=== PATIENT | female | born 1995 | race Caucasian/White ===

== ENCOUNTER 2020-04-21 00:57 | Outpatient (CLI) | payer OTHER | END 2020-04-21 00:58 | disposition critical access hospital (66) | LOC: EMS 00:57 | PROVIDERS: ATTEND Surgery | DX: R06.00 Dyspnea, unspecified (principal) | CPT/HCPCS: A0425; A0427 ==

== ENCOUNTER 2020-04-21 01:15 | Emergency (ER) | payer OTHER ==
[2020-04-21] MEDS ORDERED: CETIRIZINE 10 MG TABLET PO STA (01:28)
[2020-04-21] MEDS ORDERED: SODIUM CHLORIDE 0.9% 1,000 ML IV STA (01:28)
[2020-04-21] MEDS ORDERED: ALBUTEROL NEB 2.5 MG/3 ML INH STA (01:28)
--- NOTE | 2020-04-21 01:29 | ED Physician Documentation ---
PD HPI DYSPNEA - Stated complaint Stated Complaint: SOA - Chief complaint Chief Complaint: Resp - History obtained from History obtained from: Patient, EMS - History of Present Illness Timing - onset: How many hours ago (the past 1-2 hours, has had itching, dyspnea and wheezing.) Timing - onset during: Light activity (She had been out in the sun and with a friend of hers who was a dog. She is allergic to dogs but had done okay around this pet before. Unknown if other environmental exposures. She developed wheezing itching and lightheadedness) Timing - duration: Hours (onset mildly over 1-2 hours, then dyspnea got abruptly worse.) Timing - details: Gradual onset Inciting event(s): Allergic rxn/anaphylaxis. No: URI Improved by: Benadryl, Other (saline mist enroute by EMS.) Associated symptoms: Wheezing. No: Fever, Cough, Chest pain / discomfort, Palpitations, Bilateral edema Similar symptoms before: Has not had sx before Recently seen: Not recently seen Review of Systems Constitutional: denies: Fever, Chills Nose: denies: Rhinorrhea / runny nose, Congestion Throat: denies: Sore throat Cardiac: denies: Chest pain / pressure, Palpitations Respiratory: reports: Dyspnea, Wheezing. denies: Cough GI: denies: Abdominal Pain, Nausea, Vomiting, Diarrhea : denies: Missed period Skin: reports: Rash (mild sunburn from being outdoors today, chest/face/arms), Abrasion (s) (left lower leg few days ago, without infection). denies: Lesions Neurologic: reports: Generalized weakness. denies: Focal weakness, Numbness, Near syncope PD PAST MEDICAL HISTORY - Past Medical History Past Medical History: No Respiratory: None - Past Surgical History Past Surgical History: No - Present Medications Home Medications: Ambulatory Orders Medication Instructions Recorded Confirmed Albuterol Sulfate [Albuterol 2 puffs IH QID #1 hfa.aer.ad 04/21/20 Sulfate Hfa] Cetirizine [ZyrTEC] 10 mg PO DAILY #15 tablet 04/21/20 dexAMETHasone [Decadron] 4 mg PO DAILY #5 tablet 04/21/20 - Allergies Allergies/Adverse Reactions: Allergies Allergy/AdvReac Type Severity Reaction Status Date / Time No Known Drug Allergies Allergy Verified 04/21/20 01:25 - Social History Does the pt smoke?: No Smoking Status: Never smoker Does the pt drink ETOH?: Yes Does the pt have substance abuse?: No - Immunizations Immunizations are current?: Yes - POLST Patient has POLST: No PD ED PE NORMAL - Vitals Vital signs reviewed: Yes - General General: Alert and oriented X 3, No acute distress, Well developed/nourished - HEENT HEENT: Pharynx benign - Neck Neck: Supple, no meningeal sign, No adenopathy - Cardiac Cardiac: RRR (tachycardic but regular), No murmur - Respiratory Respiratory: No: Clear bilaterally (scattered expiratory wheezing. ) - Abdomen Abdomen: Soft, Non tender - Derm Derm: Normal color, Warm and dry Results - Vitals Vitals: Vital Signs - 24 hr 04/21/20 04/21/20 04/21/20 01:20 01:44 02:00 Temperature 36.6 C Heart Rate 127 H 101 H 130 H Respiratory 18 20 24 Rate Blood Pressure 129/90 H 111/76 O2 Saturation 100 100 Oxygen O2 Source Room air PD MEDICAL DECISION MAKING - ED course Complexity details: re-evaluated patient (improved more with albuterol neb. ), considered differential (seems allergic reaction. No angioedema. ), d/w patient Departure - Departure Disposition: 01 Home, Self Care Clinical Impression: Acute allergic reaction Qualifiers: Encounter type: initial encounter Qualified Code(s): T78.40XA - Allergy, unspecified, initial encounter Condition: Stable Record reviewed to determine appropriate education?: Yes Instructions: ED Allergic Reaction General Other Follow-Up: [facility] [Provider Group] Prescriptions: Albuterol Sulfate [Albuterol Sulfate Hfa] 2 puffs IH QID #1 hfa.aer.ad dexAMETHasone [Decadron] 4 mg PO DAILY #5 tablet Cetirizine [ZyrTEC] 10 mg PO DAILY #15 tablet Comments: I would suggest continuing cetirizine long-acting antihistamine daily for several days to a week. Also Decadron steroid daily for least 2-3 more days. Add Benadryl every 6 hours if needed for itchiness or rash. Use the albuterol inhaler 2 puffs 4 times a day as needed for wheezing or shortness of breath. It is hard to tell the cause of the allergic reaction. It may be the dog you had been around, or there could been some other environmental factor. You could try being around the dog a little bit and see if it causes some symptoms. Cetirizine daily as needed for any allergy symptoms. Have the inhaler on hand in case you get wheeziness or short of breath while out and about. Follow-up with your primary care if consistent symptoms more than several days to week or two. Discharge Date/Time: 04/21/20 02:32
[2020-04-21 02:13] VITALS: BP 111/76
[2020-04-21] MEDS ORDERED: CHERRY SYRUP 10 ML UDC PO ONE (02:24)
[2020-04-21] MEDS ORDERED: DEXAMETHASONE 10 MG/ML VIAL PO STA (02:24)
== END 2020-04-21 02:32 | disposition home or self-care (01) ==
LOC: ED 01:15
DX: T78.40XA Allergy, unspecified, initial encounter (principal); X58.XXXA Exposure to other specified factors, initial encounter; R06.2 Wheezing; R00.0 Tachycardia, unspecified; Z91.048 Other nonmedicinal substance allergy status
CPT/HCPCS: 94640; 96360; 99283; 99284; A9270

== ENCOUNTER 2020-10-29 08:48 | Emergency (ER) | payer OTHER ==
[2020-10-29 08:59] VITALS: BP 114/88
[2020-10-29 09:16] LABS: BILIRUBIN,URINE NEGATIVE (NEGATIVE); GLUCOSE, URINE (UA) NEGATIVE (NEGATIVE); KETONES,URINE (UA) NEGATIVE (NEGATIVE); LEUKOCYTE ESTERASE, URINE NEGATIVE (NEGATIVE); NITRITE,URINE NEGATIVE (NEGATIVE); OCCULT BLOOD,URINE NEGATIVE (NEGATIVE); PROTEIN,URINE NEGATIVE (NEGATIVE); UROBILINOGEN,URINE 0.2 (NORMAL) E.U./dL (NORMAL)
[2020-10-29 09:18] LABS: CLARITY,URINE CLEAR (CLEAR)
--- NOTE | 2020-10-29 10:48 | ED Physician Documentation ---
PD HPI FEMALE - Stated complaint Stated Complaint: FEMALE /7WK OB - Chief complaint Chief Complaint: Abd Pain - History obtained from History obtained from: Patient - Additional information Additional information: Patient comes emergency department chief complaint of low abdominal cramping that started yesterday. She is about 7 weeks with her last menstrual period being September 06 for starting date, and states that she has had no problems during the so far. She is for the first time. The patient began to notice nausea yesterday and today, had some mild pink dis coloration of the tissue paper when she wiped herself after urinating. Patient denies any dysuria. She has not had any further bleeding and is not bleeding onto her underwear. No fevers or chills. No recent trauma. No other complaints at this time. The patient states she has not had an ultrasound yet, but called her OBs office, who told her to come here and get checked out. Review of Systems Ten Systems: 10 systems reviewed and negative Constitutional: reports: Reviewed and negative Eyes: reports: Reviewed and negative Ears: reports: Reviewed and negative Nose: reports: Reviewed and negative Throat: reports: Reviewed and negative Cardiac: reports: Reviewed and negative Respiratory: reports: Reviewed and negative GI: reports: Abdominal Pain, Nausea : reports: Vaginal bleeding Skin: reports: Reviewed and negative Musculoskeletal: reports: Reviewed and negative Neurologic: reports: Reviewed and negative Psychiatric: reports: Reviewed and negative Endocrine: reports: Reviewed and negative Immunocompromised: reports: Reviewed and negative PD PAST MEDICAL HISTORY - Past Medical History Past Medical History: Yes Cardiovascular: None Respiratory: None Neuro: None Endocrine/Autoimmune: None GI: GERD 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 HEENT: None Psych: None Musculoskeletal: None Derm: None - Past Surgical History Past Surgical History: No - Present Medications Home Medications: Ambulatory Orders Medication Instructions Recorded Confirmed Ondansetron Odt [Zofran] 4 mg TL Q6H PRN #10 tablet 10/29/20 No122/Iron/Folic Acid 1 tab PO DAILY 10/29/20 10/29/20 [ Multi Tablet] - Allergies Allergies/Adverse Reactions: Allergies Allergy/AdvReac Type Severity Reaction Status Date / Time No Known Drug Allergies Allergy Verified 10/29/20 08:56 - Social History Does the pt smoke?: No Smoking Status: Never smoker Does the pt drink ETOH?: Yes Does the pt have substance abuse?: No - Immunizations Immunizations are current?: Yes - POLST Patient has POLST: No PD ED PE NORMAL - Vitals Vital signs reviewed: Yes - General General: Alert and oriented X 3, No acute distress, Well developed/nourished - HEENT HEENT: Atraumatic, PERRL, EOMI, Moist mucous membranes - Neck Neck: Supple, no meningeal sign - Cardiac Cardiac: RRR, No murmur, Strong equal pulses - Respiratory Respiratory: No respiratory distress, Clear bilaterally - Abdomen Abdomen: Soft, Non distended, Other (Slight suprapubic tenderness. 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 Normal external genitalia and cervical morphology. No vaginal trauma. No bright red blood or tissue. Mild amount of brown-tinged mucousy discharge. No cervical motion tenderness or adnexal tenderness. No cervical mass.) - Back Back: No CVA TTP - Derm Derm: Normal color, Warm and dry, No rash - Extremities Extremities: No deformity, No edema, No calf tenderness / cord - Neuro Neuro: Alert and oriented X 3, Other (Grossly intact.) - Psych Psych: Normal mood, Normal affect Results - Vitals Vitals: Vital Signs - 24 hr 10/29/20 08:57 Temperature 36.8 C Heart Rate 95 Respiratory 19 Rate Blood Pressure 114/88 H O2 Saturation 100 Oxygen O2 Source Room air - Labs Labs: Laboratory Tests 10/29/20 10/29/20 09:06 09:08 HCG, Quant 14323.00 Urine Color YELLOW Urine Clarity CLEAR Urine pH 7.0 Ur Specific [place] 1.020 Urine Protein NEGATIVE Urine Glucose (UA) NEGATIVE Urine Ketones NEGATIVE Urine Occult Blood NEGATIVE Urine Nitrite NEGATIVE Urine Bilirubin NEGATIVE Urine Urobilinogen 0.2 (NORMAL) Ur Leukocyte Esterase NEGATIVE Ur Microscopic Review NOT INDICATED Urine Culture Comments NOT INDICATED - Rads (name of study) US OB Radiology: Final report received, EMP read indepedently, See rad report (Viable IUP) PD MEDICAL DECISION MAKING - ED course Complexity details: reviewed results, re-evaluated patient, considered differential, d/w patient ED course: The patient was worked up in the emergency department with urinalysis, which was negative, and serum hCG, which was found to be above 40,000. OB ultrasound was also performed, and showed a viable IUP. I discussed with the patient that her work-up looks good. We have discussed that it is still possible that she could be exhibiting early signs of an impending miscarriage, but that it is also very possible that her will progress without incident. I have encouraged her to make an appointment to follow-up as soon as possible with her OB specialist. If she develops heavy bright red vaginal bleeding or severe lower abdominal pain/cramping, she should be reevaluated. Departure - Departure Disposition: 01 Home, Self Care Clinical Impression: Threatened affecting intrauterine Condition: Stable Instructions: ED Miscarriage Poss Prescriptions: Ondansetron Odt [Zofran] 4 mg TL Q6H PRN #10 tablet PRN Reason: Nausea / Vomiting Comments: Your labs show an appropriate level of hormones, and your ultrasound looks great. Your baby has a good heartbeat which is very promising. You do not have any fresh blood in your vagina, and have just a very small amount of brown-tinged discharge. This is a sign of a little bit of old blood that is still sitting around in your vagina, and will likely make its way out over the next several days. It is not exactly clear what is caused this, though as we have discussed, the cervix does swell and become more prone to bleeding during . Sexual intercourse or a jarring incident, even if mild, such as falling, can sometimes cause this bleeding. At this point in time, you should continue with your plans to obtain routine care with OB. If you develop worsening pain and heavier bleeding, you should be reevaluated. Otherwise, at this time, your looks good. Discharge Date/Time: 10/29/20 11:47
--- NOTE | 2020-10-29 13:00 | Ultrasound Report ---
PROCEDURE: OB First Trimester INDICATIONS: cramping/spotting/7 wks preg OUTSIDE/PRIOR DATING DATA: Last menstrual period (LMP): 09/06/2020. LMP-based estimated date of delivery (MASHA): 06/13/2021. First dating scan (date and location): 10/29/2020. Estimated date of delivery (MASHA) from first dating scan: 06/26/2021. TECHNIQUE: Real-time scanning was performed of the fetus and maternal pelvic organs, with image documentation. COMPARISON: none FINDINGS: Embryo: Intrauterine is identified with crown-rump length measuring 2 mm corresponding to 5 weeks 5 days. No heart tones are identified. Second present. Gestational sac appears irregular and prominent compared to gestational age. Measurement variability in dating: +/- 4 weeks by LMP, +/- 7 days by mean sac diameter (use before 6 weeks gestation if crown-rump length not able to be measured), +/- 5 days by crown-rump length (6-12 weeks gestation). Maternal organs: Ovaries demonstrate a right corpus luteal cyst measuring 32 x 22 x 25 mm.. IMPRESSION: 1. Intrauterine without identified heart tones. It is noted that there is discrepancy between gestational age by LMP and ultrasound from today's exam. In addition, gestational sac is pro minent and irregular, seeming out of proportion for size of pole. Recommend correlation of beta hCG levels and short interval imaging follow-up for further evaluation of potential missed dating an early , too soon for detection of heart tones versus demise. Reviewed by: Carol Tucker MD on 10/29/2020 12:59 PM PST Approved by: Carol Tucker MD on 10/29/2020 12:59 PM PST Station ID: [id number]
== END 2020-10-29 11:47 | disposition home or self-care (01) ==
LOC: ED 08:48
DX: O20.0 Threatened abortion (principal); Z3A.01 Less than 8 weeks gestation of pregnancy
CPT/HCPCS: 36415; 81001; 81003; 84702; 87086; 99284

== ENCOUNTER 2020-11-11 08:00 | Outpatient (CLI) | payer OTHER ==
[2020-11-11 16:39] LABS: MUDS CUTOFF CONCENTRATIONS CUTOFF CONC BELOW:
[2020-11-11 17:00] LABS: BILIRUBIN,URINE NEGATIVE (NEGATIVE); GLUCOSE, URINE (UA) NEGATIVE (NEGATIVE); KETONES,URINE (UA) NEGATIVE (NEGATIVE); LEUKOCYTE ESTERASE, URINE NEGATIVE (NEGATIVE); NITRITE,URINE NEGATIVE (NEGATIVE); OCCULT BLOOD,URINE NEGATIVE (NEGATIVE); PH,URINE 6.5 PH (5.0-7.5); PROTEIN,URINE NEGATIVE (NEGATIVE); UROBILINOGEN,URINE 0.2 (NORMAL) E.U./dL (NORMAL)
[2020-11-11 17:02] LABS: AMORPHOUS SEDIMENT,UR Few /LPF; BACTERIA,URINE Rare /HPF (None Seen); CLARITY,URINE CLEAR (CLEAR); RBC,URINE 0-5 /HPF (0-5); SQUAMOUS EPITHELIAL CELL,UR FEW Squamous (<= Few)
[2020-11-11 17:03] LABS: MUCUS,URINE Few Strands
[2020-11-11 17:10] LABS: AMPHETAMINE SCREEN,URINE NEGATIVE (NEGATIVE); BENZODIAZEPINES SCREEN, URINE NEGATIVE (NEGATIVE); COCAINE SCREEN URINE NEGATIVE (NEGATIVE); METHADONE SCREEN, URINE NEGATIVE (NEGATIVE); METHAMPHETAMINES SCREEN, URINE NEGATIVE (NEGATIVE); OPIATE SCREEN, URINE NEGATIVE (NEGATIVE); OXYCODONE SCREEN, URINE NEGATIVE (NEGATIVE); PROPOXYPHENE SCREEN, URINE NEGATIVE (NEGATIVE); TRICYCLIC ANTIDEPRESSANT,URINE NEGATIVE (NEGATIVE)
== END 2020-11-11 23:59 | disposition home or self-care (01) ==
LOC: LAB.R 08:00
PROVIDERS: ATTEND Advanced Practice Midwife
DX: O20.9 Hemorrhage in early pregnancy, unspecified (principal)
CPT/HCPCS: 80306; 81001; 87086

== ENCOUNTER 2020-11-11 11:18 | Outpatient (CLI) | payer OTHER | END 2020-11-11 11:19 | disposition home or self-care (01) | LOC: LAB 11:18 | PROVIDERS: ATTEND Advanced Practice Midwife | DX: O20.9 Hemorrhage in early pregnancy, unspecified (principal); Z3A.00 Weeks of gestation of pregnancy not specified | CPT/HCPCS: 36415; 80306; 81001; 84702; 87086 ==

== ENCOUNTER 2020-11-16 18:53 | Outpatient (CLI) | payer OTHER ==
--- NOTE | 2020-11-17 08:50 | Ultrasound Report ---
PROCEDURE: OB First Trimester w/TV INDICATIONS: VAGINAL BLEEDING 1ST TRIMESTER OUTSIDE/PRIOR DATING DATA: Last menstrual period (LMP): 09/06/2020. LMP-based estimated date of delivery (MASHA): 06/13/2021. First dating scan (date and location): 10/29/2020. Estimated date of delivery (MASHA) from first dating scan: 06/26/2021. TECHNIQUE: Real-time scanning was performed of the fetus and maternal pelvic organs, with image documentation. Endovaginal scanning was also performed to better visualize the fetus and maternal ovaries. COMPARISON: 10/29/2020 FINDINGS: There is a gestational sac in the uterine fundus measuring approximately 4.8 cm, corresponding to ges tational age of 10 weeks 3 days. Within the gestational sac there is a fetus with a crown-rump length of 1.9 cm, corresponding to a gestational age of 8 weeks 3 days. The composite average ultrasound ag e is 8 weeks 3 days. heart tones detected at 169 bpm. Subchorionic hemorrhage measuring approximately 0.8 x 0.9 x 1.5 cm. Numerous right ovarian follicles are present. Left ovarian corpus luteum cyst again noted. IMPRESSION: Single live intrauterine gestation with composite ultrasound age of 8 weeks 3 days. heart rate within normal limits. Small subchorionic hemorrhage noted. Reviewed by: Noel Gonzalez MD on 11/17/2020 8:49 AM PST Approved by: Noel Gonzalez MD on 11/17/2020 8:49 AM PST Station ID: [id number]
== END 2020-11-16 18:54 | disposition home or self-care (01) ==
LOC: DI 18:53
PROVIDERS: ATTEND Advanced Practice Midwife
DX: O20.9 Hemorrhage in early pregnancy, unspecified (principal); Z3A.08 8 weeks gestation of pregnancy

== ENCOUNTER 2020-12-02 08:00 | Outpatient (CLI) | payer OTHER ==
[2020-12-03 21:22] LABS: CHLAMYDIA TRACHOMATIS DNA NEGATIVE (NEGATIVE); NEISSERIA GONORRHOEAE DNA NEGATIVE (NEGATIVE); TRICHOMONAS VAGINALIS DNA NEGATIVE (NEGATIVE)
== END 2020-12-02 23:59 | disposition home or self-care (01) ==
LOC: LAB 08:00
PROVIDERS: ATTEND Nurse Practitioner Obstetrics & Gynecology
DX: Z11.3 Encounter for screening for infections with a predominantly sexual mode of transmission (principal)
CPT/HCPCS: 87491; 87591; 87661

== ENCOUNTER 2020-12-04 08:11 | Outpatient (CLI) | payer OTHER ==
[2020-12-04 12:27] LABS: BASOPHILS % (AUTO) 0.5 %; EOSINOPHILS # (AUTO) 0.2 10^3/uL (0.0-0.7); EOSINOPHILS % (AUTO) 3.1 %; HCT - HEMATOCRIT 36.8 % (37.0-47.0); HGB - HEMOGLOBIN 12.6 g/dL (12.0-16.0); LYMPHOCYTES % (AUTO) 16.9 %; MEAN CORPUSCULAR HEMOGLOBIN 29.8 pg (27.0-31.0); MEAN CORPUSCULAR HGB CONC 34.2 g/dL (32.0-36.0); MEAN PLATELET VOLUME 11.9 fL (7.9-10.8); MONOCYTES # (AUTO) 0.4 10^3/uL (0.0-1.0); MONOCYTES % (AUTO) 6.3 %; NEUTROPHILS # (AUTO) 4.2 10^3/uL (1.5-6.6); NEUTROPHILS % (AUTO) 72.9 %; PLT - PLATELET COUNT 271 10^3/uL (130-450); RED BLOOD COUNT 4.23 10^6/uL (4.20-5.40); RED CELL DISTRIBUTION WIDTH 11.9 % (12.0-15.0); WHITE BLOOD COUNT 5.8 x10^3/uL (4.8-10.8)
[2020-12-04 21:22] LABS: CHLAMYDIA TRACHOMATIS DNA NEGATIVE (NEGATIVE); NEISSERIA GONORRHOEAE DNA NEGATIVE (NEGATIVE); TRICHOMONAS VAGINALIS DNA NEGATIVE (NEGATIVE)
[2020-12-05 07:16] LABS: HIV AG/AB 4TH GEN NON-REACTIVE (NON-REACTIVE)
[2020-12-05 13:12] LABS: HEPATITIS B SURFACE ANTIGEN NON-REACTIVE (NON-REACTIVE)
[2020-12-05 14:26] LABS: HEPATITIS C ANTIBODY NON-REACTIVE (NON-REACTIVE)
== END 2020-12-04 08:12 | disposition home or self-care (01) ==
LOC: LAB.N 08:11
PROVIDERS: ATTEND Nurse Practitioner Obstetrics & Gynecology
DX: Z36.89 Encounter for other specified antenatal screening (principal)
CPT/HCPCS: 36415; 81599; 85025; 86592; 86762; 86787; 86803; 86850; 86900; 86901; 87340; 87389; 87491; 87591; 87661

== ENCOUNTER 2021-02-03 13:13 | Outpatient (CLI) | payer OTHER ==
--- NOTE | 2021-02-03 16:57 | Ultrasound Report ---
PROCEDURE: OB Detailed Eval INDICATIONS: SCREENING, SUPERVISION OF OUTSIDE/PRIOR DATING DATA: Last menstrual period (LMP): 09/06/2020. LMP-based estimated date of delivery (MASHA): 06/13/2021. First dating scan (date and location): 10/29/2020. Estimated date of delivery (MASHA) from first dating scan: 06/26/2021. TECHNIQUE: Real-time scanning was performed of the fetus, with image documentation and biometric measurements. Endovaginal scanning: Not needed COMPARISON: Prior OB ultrasound studies 10/29/2020 and 11/16/2020. FINDINGS: General: A single living intrauterine gestation is present. Presentation: Variable at this time Placenta: Placental position is anterior, without previa. Amniotic fluid index: 10.3 cm, 10.5 percentile for gestational age. heart rate: 147 beats per minute. Maternal cervical canal: 5.1 cm long; normal length is 2.5 cm or more. biometrics: Biparietal diameter: 4.7 cm, 20 weeks 1 day Head circumference: 7.4 cm, 19 weeks 6 days Abdominal circumference: 14.9 cm, 20 weeks 2 days Femur length: 3.0 cm, 19 weeks 2 days Estimated gestational age from initial scan: 19 weeks 4 days. Composite gestational age from present scan: 19 weeks 6 days Estimated weight and percentile: 314 g, 59th percentile Measurement variability in biometric dating: +/- 10 days from 12-20 weeks gestation, +/- 2 weeks from 20-30 weeks gestation, +/- 3 weeks at 30 weeks gestation or later. Anatomic survey: Neuro: Ventricles are normal at less than 10 mm. Cisterna magna is normal at 3-11 mm. Cerebellum i s normal in size and morphology. Nuchal skin fold: Normal at less than 6 mm between 14 and 20 weeks gestational age. Face: Nose and lips, facial profile are normal. Spine: No evidence for spina bifida. Heart: 4-chambered heart is present, with normal ventricular outflow tracts. Diaphragm: Diaphragm is intact. Stomach: Left-sided stomach is present. Kidneys: No hydronephrosis. Normal is less than 5 mm in 2nd trimester, less than 7 mm in 3rd trimester. Cord: 3 vessel cord has orthotopic insertion. Bladder: Normal in size. Extremities: All 4 extremities are visualized. IMPRESSION: No anomaly seen, appropriate interval growth, the delivery date is projected to be centered on 06/26/2021, +/- 5 days. Reviewed by: Jalen Jones MD on 02/03/2021 4:56 PM PDT Approved by: Jalen Jones MD on 02/03/2021 4:56 PM PDT Station ID: [id number]
== END 2021-02-03 13:14 | disposition home or self-care (01) ==
LOC: DI 13:13
PROVIDERS: ATTEND Nurse Practitioner Obstetrics & Gynecology
DX: Z34.92 Encounter for supervision of normal pregnancy, unspecified, second trimester (principal); Z36.89 Encounter for other specified antenatal screening

== ENCOUNTER 2021-04-07 07:39 | Outpatient (CLI) | payer OTHER ==
[2021-04-07 12:23] LABS: HCT - HEMATOCRIT 31.2 % (37.0-47.0); MEAN CORPUSCULAR HEMOGLOBIN 28.1 pg (27.0-31.0); MEAN CORPUSCULAR HGB CONC 32.1 g/dL (32.0-36.0); MEAN CORPUSCULAR VOLUME 87.6 fL (81.0-99.0); MEAN PLATELET VOLUME 11.4 fL (7.9-10.8); RED BLOOD COUNT 3.56 10^6/uL (4.20-5.40); RED CELL DISTRIBUTION WIDTH 12.1 % (12.0-15.0); WHITE BLOOD COUNT 7.5 x10^3/uL (4.8-10.8)
== END 2021-04-07 07:40 | disposition home or self-care (01) ==
LOC: LAB.N 07:39
PROVIDERS: ATTEND Advanced Practice Midwife
DX: Z34.90 Encounter for supervision of normal pregnancy, unspecified, unspecified trimester (principal); Z36.89 Encounter for other specified antenatal screening
CPT/HCPCS: 36415; 82950; 85027

== ENCOUNTER 2021-06-02 08:00 | Outpatient (CLI) | payer OTHER | END 2021-06-02 23:59 | disposition home or self-care (01) | LOC: LAB.WC 08:00 | PROVIDERS: ATTEND Advanced Practice Midwife | DX: Z36.85 Encounter for antenatal screening for Streptococcus B (principal) | CPT/HCPCS: 87797 ==

== ENCOUNTER 2021-06-14 19:56 | Emergency (ER) | payer OTHER ==
[2021-06-14] MEDS ORDERED: ALBUTEROL NEB 2.5 MG/3 ML INH STA (20:24)
[2021-06-14] MEDS ORDERED: predniSONE 20 MG TABLET PO STA (20:58)
--- NOTE | 2021-06-14 21:01 | ED Physician Documentation ---
History of Present Illness - Stated complaint Stated Complaint: SOA - Chief complaint Chief Complaint: Resp - History obtained from History obtained from: Patient - History of Present Illness Timing: Today Pain level max: 0 Pain level now: 0 - Additonal information Additional information: 25-year-old female, about 38 weeks presents to the emergency department the wheezing today. She has had this with previous allergic reactions. Does not have an inhaler at home. She states last time this occurred it was from a dog that she had been around. Is not having any abdominal pain, cramping, contractions, vaginal bleeding or leakage of fluid. Review of Systems Constitutional: denies: Fever, Chills Nose: denies: Rhinorrhea / runny nose, Congestion Throat: denies: Sore throat Cardiac: denies: Chest pain / pressure, Palpitations Respiratory: reports: Wheezing. 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 HEENT: None Psych: None Musculoskeletal: None Derm: None - Past Surgical History Past Surgical History: No - Present Medications Home Medications: Ambulatory Orders Medication Instructions Recorded Confirmed Ondansetron Odt [Zofran] 4 mg TL Q6H PRN #10 tablet 10/29/20 No122/Iron/Folic Acid 1 tab PO DAILY 10/29/20 10/29/20 [ Multi Tablet] Albuterol Sulf [Ventolin Hfa 1 - 2 puffs INH Q4HR PRN #1 inhaler 06/14/21 Inhaler] - Allergies Allergies/Adverse Reactions: Allergies Allergy/AdvReac Type Severity Reaction Status Date / Time No Known Drug Allergies Allergy Verified 06/14/21 19:58 - Social History Does the pt smoke?: No Smoking Status: Never smoker Does the pt drink ETOH?: Yes Does the pt have substance abuse?: No - Immunizations Immunizations are current?: Yes - POLST Patient has POLST: No PD ED PE NORMAL - Vitals Vital signs reviewed: Yes - General General: Alert and oriented X 3, No acute distress, Well developed/nourished - HEENT HEENT: Moist mucous membranes - Neck Neck: Supple, no meningeal sign - Cardiac Cardiac: RRR, Strong equal pulses - Respiratory Respiratory: No respiratory distress, Other (Mild wheezing bilaterally) - Abdomen Abdomen: Soft, Non tender, Non distended - Derm Derm: Warm and dry - Extremities Extremities: No edema - Neuro Neuro: Alert and oriented X 3 - Psych Psych: Normal mood, Normal affect Results - Vitals Vitals: Oxygen O2 Source Room air PD MEDICAL DECISION MAKING - ED course Complexity details: re-evaluated patient, considered differential, d/w patient ED course: Symptoms resolved with albuterol. No further wheezing. No dyspnea. monitoring done by OB with no issues found. We will prescribe an inhaler for home and have her follow-up with her doctor. No evidence of anaphylaxis. Was given a dose of steroid. Patient counseled regarding signs and symptoms for which I believe and urgent re-evaluation would be necessary. Patient with good understanding of and agreement to plan and is comfortable going home at this time This document was made in part using voice recognition software. While efforts are made to proofread this document, sound alike and grammatical errors may occur. Departure - Departure Disposition: 01 Home, Self Care Clinical Impression: Wheezing Condition: Good Instructions: ED Reactive Airway Disease Follow-Up: your,doctor in 3 days [Other] Prescriptions: Albuterol Sulf [Ventolin Hfa Inhaler] 1 - 2 puffs INH Q4HR PRN #1 inhaler PRN Reason: Shortness Of Air/Wheezing Comments: [facility] prescription [facility] in [place]. Please follow-up with your OB for further care. Return if you worsen. Discharge Date/Time: 06/14/21 21:06
[2021-06-14 21:07] VITALS: BP 122/80
--- NOTE | 2021-06-15 10:36 | PROCEDURE REPORT ---
- HPI Diagnosis/Indication for NST: Other (Patient seen in ED for shortness of breath. No OB complaints.) Vital Signs Temperature 97.7 F 06/14/21 19:58 Heart Rate 90 06/14/21 19:58 Respiratory Rate 16 06/14/21 19:58 Blood Pressure 140/90 H 06/14/21 19:58 O2 Saturation 99 06/14/21 19:58 Temperature 97.7 F 06/14/21 19:58 Heart Rate 110 H 06/14/21 21:06 Respiratory Rate 16 06/14/21 21:06 Blood Pressure 122/80 06/14/21 21:06 O2 Saturation 98 06/14/21 21:06 - NST Procedure 25 yo at 38 6/7 NST: 20:28 to 20:59 in Emergency department. FHT's baseline is 130 with moderate variability and Accelerations 15X15. No decelerations. Very irregular contractions that patient did not feel. Reactive NST and Category I monitor strip. Follow-up in office with Lucy Osuna CNM as scheduled on 06/15/21/
== END 2021-06-14 21:06 | disposition home or self-care (01) ==
LOC: ED 19:56
DX: O99.513 Diseases of the respiratory system complicating pregnancy, third trimester (principal); R06.2 Wheezing; Z3A.38 38 weeks gestation of pregnancy
CPT/HCPCS: 94640; 99283; J7512

== ENCOUNTER 2021-06-23 16:54 | Outpatient (CLI) | payer OTHER ==
--- NOTE | 2021-06-23 17:33 | PROVIDER PROGRESS NOTE ---
- HPI Chief Complaint: Leakage of vaginal fluid - Procedures OB Procedure Performed: NST - Plan Plan: Pt evaluated face to face Caitlin is a 25yo @ 39.4wks gestation by 5.5wk U/S (unknown LMP) who presents to [facility] with c/o vaginal leakage of fluid and contractions. She states the fluid seems to occur mostly when she goes from a sitting to a standing position and she noticed it for the first time today at 1100. She reports contractions that are irregular and seems inconsistent. She states she is managing well. She reports she lost her mucus plug last night. She denies vaginal bleeding and reports +FM. NST performed 06/23/2021 NST read 06/23/2021 NST reactive. FHR baseline 140s, moderate variability, + accels, no decels No contractions appreciated via tocometry ROM plus NEGATIVE Initial BP mildly elevated with repeat and serial BPs WNL. Pt denies FOWLER, visual disturbances, RUQ or epigastric pain. Assessment: 25yo @ 39.4wks gestation by 5.5wk U/S Small amount of leakage likely urine FHR Category I GBS neg Plan: Discussed likelihood that her leakage is urinary rather than amniotic fluid. Pt released home with precautions. Pt has emergency contact number. She verbalized understanding and agrees to above plan. She denies further questions or concerns at this time. FINAL DIAGNOSIS: Incontinence False labor <37wks gestation
[2021-06-23 17:43] LABS: RUPTURE OF MEMBRANES PLUS NEGATIVE (NEGATIVE)
[2021-06-23 18:12] VITALS: BP 124/75
== END 2021-06-23 17:58 | disposition home or self-care (01) ==
LOC: WFO 16:54 → FBP 16:55 → WFO 17:58
PROVIDERS: ATTEND Nurse Practitioner Obstetrics & Gynecology
DX: Z34.03 Encounter for supervision of normal first pregnancy, third trimester (principal); Z3A.39 39 weeks gestation of pregnancy
CPT/HCPCS: 59025; 84112; 99211; 99213

== ENCOUNTER 2021-06-25 16:01 | Inpatient (IN) | payer OTHER ==
[2021-06-25] MEDS ORDERED: miSOPROStoL 200 MCG TABLET BC PRN (17:01)
[2021-06-25] MEDS ORDERED: LIDOCAINE-MPF 1% 30 ML VIAL ID PRN (17:01)
[2021-06-25] MEDS ORDERED: TRANEXAMIC ACID IN NACL 1,000 MG/100 ML BAG IV PRN (17:01)
[2021-06-25] MEDS ORDERED: OXYTOCIN 10 UNIT/ML VIAL IM PRN (17:01)
[2021-06-25] MEDS ORDERED: SODIUM CHLORIDE FLUSH 0.9% 10 ML SYRINGE IVP PRN (17:01)
[2021-06-25] MEDS ORDERED: CARBOPROST TROMETHAMINE 250 MCG/ML AMP IM PRN (17:01)
[2021-06-25 17:03] LABS: RUPTURE OF MEMBRANES PLUS NEGATIVE (NEGATIVE)
--- NOTE | 2021-06-25 17:14 | PROCEDURE REPORT ---
- HPI Diagnosis/Indication for NST: Other Current EDU 06/26/21 Gestation 39 Weeks and 6 Days 1 Para 0 Vital Signs Temperature 36.8 C 06/25/21 16:17 Heart Rate 137 H 06/25/21 16:17 Respiratory Rate 17 06/25/21 16:17 Blood Pressure 132/86 H 06/25/21 16:17 O2 Saturation 97 06/25/21 16:17 Temperature 36.8 C 06/25/21 17:04 Heart Rate 128 H 06/25/21 16:28 Respiratory Rate 17 06/25/21 16:28 Blood Pressure 132/86 H 06/25/21 16:28 O2 Saturation 97 06/25/21 16:17 - NST Procedure NST Procedure Start Time 17:03 Stop Time 17:55 - Results and Plan Plan: Caitlin presents today with c/o contractions and feeling like her water may have broken this afternoon at 12:00. She states her contractions have increased in frequency and intensity throughout the day today. She denies vaginal bleeding. She reports +FM. NST performed 06/25/2021 NST read 06/25/2021 FHR baseline 150, moderate variability, + accels, no decels Contractions palpate moderate every 3-5 minutes with soft resting tone SVE 5/80/-3, vertex ROM plus NEGATIVE Plan: Admit for expectant management. FINAL DIAGNOSIS: Active labor
--- NOTE | 2021-06-25 17:27 | HISTORY & PHYSICAL EXAMINATION ---
Admit History - Visit Reason Visit Reason: Contractions - : 1 Parity: 0 Premature: 0 Ectopic: 0 : 0 Care: positive: [facility] Risk/History: positive: None Complications This : positive: None Smoking Status: Never smoker - Mother's Labs Mother's Blood Type: positive: AB Mother's RH: positive: Positive GBS: positive: Group B Step Negative Rubella Status: positive: Immune Meds/Allgy - Home Medications Home Medications: Ambulatory Orders Medication Instructions Recorded Confirmed Ondansetron Odt [Zofran] 4 mg TL Q6H PRN #10 tablet 10/29/20 No122/Iron/Folic Acid 1 tab PO DAILY 10/29/20 10/29/20 [ Multi Tablet] Albuterol Sulf [Ventolin Hfa 1 - 2 puffs INH Q4HR PRN #1 inhaler 06/14/21 Inhaler] - Allergies Allergies/Adverse Reactions: Allergies Allergy/AdvReac Type Severity Reaction Status Date / Time No Known Drug Allergies Allergy Verified 06/14/21 19:58 Review of Systems - Constitutional Constitutional: denies: Fatigue, Fever, Chills, Malaise - Eyes Eyes: denies: Blurred vision, Spots in vision, Dipolpia - Cardiovascular Cariovascular: denies: Chest pain, Edema - Respiratory Respiratory: denies: Cough, Wheezing, SOB at rest - Integumentary Integumentary: denies: Rash, Pruritis - Neurological Neurological: denies: Headache Physical - Abdominal Exam Vital Signs: Temp Pulse Resp BP Pulse Ox 36.8 C 128 H 17 132/86 H 97 06/25/21 17:04 06/25/21 16:28 06/25/21 16:28 06/25/21 16:28 06/25/21 16:17 Contraction Frequency (min/apart): 3-5 Contraction Intensity: positive: Moderate Uterine Resting Tone: positive: Soft - Monitoring Heart Rate Baseline: 150 Strip Review: positive: Category I - Presentation Presentation: positive: Vertex - Vaginal Exam Membranes: positive: Membranes intact Dilation (in cm): 5 Effacement (%): 80 Station: positive: -2 - Speculum Exam Speculum Exam Performed: positive: No Findings: positive: Other Plan for Labor - Plan For Labor I expect patient to be DC'd or transferred within 96 hours.: Yes Plan for Labor: Caitlin is a 25yo @ 39.6wks gestation by 8.3wk ultrasound who presents to [facility] with c/o contractions. She has been sunday throughout the morning and states they have consistently increased in frequency and intensity. She feels maybe her water broke at noon this afternoon but she is not entirely sure. She denies vaginal bleeding and she reports +FM. She is supported by her Bahman. Upon arrival SVE 5/80/-2 and vertex. ROM plus was negative. She has been a patient of [facility] through the duration of her which has remained uncomplicated with the exception of sunday COVID-19 05/2021 despite being fully vaccinated. Her genetic history is significant for her 's mother and brother affected by Fdrjygg-[id number]-Smqdq. She was referred for genetic counseling and completed early testing which was WNL. She will be admitted to [facility] for expectant management Dating criteria: LMP unknown Initial ultrasound @ 5.5wks dates with MASHA 06/26/2021 F/u first trimester U/S @ 8.3wks NOT c/w LMP (06/13/2021) however consistent with initial ultrasound dating for FINAL MASHA 06/26/2021 Serial exams - agree OB Hx: G1: Current Medications: PNV; albuterol; ferrous sulfate Allergies: NKDA PMHx: recent asthma diagnosis Surgical Hx: none Social Hx: Never smoker. No ETOH or IVDA. 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 's mother and brother are affected by Flcvpaa-Qsogn-Gbkgv (CMT) which manifests in them both as chronic foot pain. Pt states her said it is not something he can pass on to his children since he is not affected - genetic counseling completed and pt states she had early testing which was WNL. Genetics consult WNL. cffDNA low risk. Carrier screening-neg First trimester ultrasound with MFM - limited anatomic survey WNL FAS: Anterior placenta. KATHLEEN 10.3- wnl. EFW 59%. 3VC. Glucola 137 Influenza: will accept COVID vax- #1- December; #2- January. Had Covid 05/10/21. TDAP 04/13/2021 GBS at 36.4- NEGATIVE HSV: denies in self and partner Breast pump Rx 04/13/2021 MOD: Anticipate ; Bahman; It's a BOY! Ariel. Desires unmedicated delivery. pp contraception: IUD (progesterone- unsure of which one) pap: last pap 2019 WNL per patient, denies hx abnormal Physical Exam: Normocephalic, atraumatic Heart RRR w/o M/G/R Lungs CTAB Abdomen gravid, soft, nontender EFW 3400g FHR baseline 150s, moderate variability, + accels, no decels Contractions palpate moderate every 3-5 minutes with soft resting tone SVE 5/80/-2, vertex. Membranes intact (ROM plus negative) Bilateral LE's trace edema Mood is good. Assessment: 25yo @ 39.6wks gestation by 8.3wk U/S Active labor GBS neg FHR Category I Plan: Admit for expectant management. Intermittent heart rate auscultation. Encouraged ambulation and position changes. Jacuzzi PRN. Nitrous oxide PRN. Intends unmedicated delivery however pt may have epidural at her request. Anticipate .
[2021-06-25 17:51] LABS: BASOPHILS % (AUTO) 0.2 %; EOSINOPHILS # (AUTO) 0.2 10^3/uL (0.0-0.7); EOSINOPHILS % (AUTO) 1.6 %; HCT - HEMATOCRIT 33.7 % (37.0-47.0); HGB - HEMOGLOBIN 12.1 g/dL (12.0-16.0); LYMPHOCYTES # (AUTO) 1.1 10^3/uL (1.5-3.5); LYMPHOCYTES % (AUTO) 11.9 %; MEAN CORPUSCULAR HEMOGLOBIN 30.6 pg (27.0-31.0); MEAN CORPUSCULAR HGB CONC 35.9 g/dL (32.0-36.0); MEAN CORPUSCULAR VOLUME 85.1 fL (81.0-99.0); MONOCYTES # (AUTO) 0.6 10^3/uL (0.0-1.0); MONOCYTES % (AUTO) 6.5 %; NEUTROPHILS # (AUTO) 7.6 10^3/uL (1.5-6.6); NEUTROPHILS % (AUTO) 79.5 %; PLT - PLATELET COUNT 257 10^3/uL (130-450); RED BLOOD COUNT 3.96 10^6/uL (4.20-5.40); WHITE BLOOD COUNT 9.5 x10^3/uL (4.8-10.8)
--- NOTE | 2021-06-25 18:10 | PROVIDER PROGRESS NOTE ---
Labor Progress Note - Labor Progress Note Labor Progress Note/Additional Text: SROM moderate amount of clear fluid at 1741.
[2021-06-25] MEDS ORDERED: ONDANSETRON 4 MG/2 ML VIAL IVP PRN (18:49)
[2021-06-25] MEDS ORDERED: ONDANSETRON 4 MG/2 ML VIAL ONE (18:52)
[2021-06-25] MEDS ORDERED: ROPIVACAINE 0.2% 200 MG/100 ML BAG EP ONE ×2 (19:01→21:28)
[2021-06-25] MEDS: LACTATED RINGERS 1,000 ML IV SCH ×2 (19:14→21:16)
[2021-06-25] MEDS ORDERED: NALBUPHINE 10 MG/ML AMP IVP PRN (19:22)
[2021-06-25] MEDS ORDERED: NALOXONE 0.4 MG/ML VIAL IVP PRN (19:22)
[2021-06-25] MEDS ORDERED: ePHEDrine 50 MG/ML VIAL IVP PRN (19:22)
[2021-06-25] MEDS ORDERED: ROPIVACAINE 0.2% 200 MG/100 ML BAG EP PRN (19:22)
--- NOTE | 2021-06-25 19:22 | ANESTHESIA ---
Pre-Anesthesia VS, & Labs - Diagnosis Active labor - Procedure vaginal delivery Vital Signs: Temp Pulse Resp BP Pulse Ox 36.8 C 128 H 17 132/86 H 97 06/25/21 17:04 06/25/21 16:28 06/25/21 16:28 06/25/21 16:28 06/25/21 16:17 Height: 5 ft 1 in Weight (kg): 72.575 kg Body Mass Index: 30.2 BMI Classification: Obese - NPO Other (clear liquids during labor) - Is Patient ?: Yes - Lab Results Current Lab Results: Laboratory Tests 06/25/21 17:15: Blood Type AB POSITIVE, Antibody Screen NEGATIVE 06/25/21 17:15: WBC 9.5, RBC 3.96 L, Hgb 12.1, Hct 33.7 L, MCV 85.1, MCH 30.6, MCHC 35.9, RDW 14.0, Plt Count 257, MPV 12.0 H, Neut # (Auto) 7.6 H, Lymph # (Auto) 1.1 L, [place] # (Auto) 0.6, Eos # (Auto) 0.2, Baso # (Auto) 0.0, Absolute Nucleated RBC 0.00, Nucleated RBC % 0.0 Fish Bones: 06/25/21 17:15 Home Medications and Allergies Active Medications Carboprost Tromethamine (Carboprost Tromethamine 250 Mcg/Ml Amp) 250 mcg IM Q15M PRN PRN Reason: Step 4: Hemorrhage protocol Stop: 06/30/21 17:02 Lactated Ringer's (Lr) 1,000 mls @ 150 mls/hr IV .Q6H40M CASTRO Last Admin: 06/25/21 19:14 Dose: 999 mls/hr Documented by: Oxytocin/Sodium Chloride (Pitocin/Sodium Chloride) 500 mls @ 999 mls/hr IV PRN PRN; Protocol PRN Reason: POST- HEMORR PREVENTION Stop: 06/30/21 17:02 Tranexamic Acid (Tranexamic 1,000 Mg/100ml-Nacl) 1,000 mg in 100 mls @ 600 mls/hr IV .ONCE PRN PRN Reason: EBL >1200mL and within 3hr Stop: 06/30/21 17:02 Lidocaine HCl (Lidocaine-Mpf 1% 30 Ml Vial) 30 ml ID .ONCE PRN PRN Reason: PERINEAL REPAIR Stop: 06/30/21 17:02 Misoprostol (Misoprostol 200 Mcg Tablet) 800 mcg BC .ONCE PRN PRN Reason: Step 3: Hemorrhage protocol Stop: 06/30/21 17:02 Ondansetron HCl (Ondansetron 4 Mg/2 Ml Vial) 4 mg IVP Q4HR PRN PRN Reason: Nausea / Vomiting Last Admin: 06/25/21 18:50 Dose: 4 mg Documented by: Oxytocin (Oxytocin 10 Unit/Ml Vial) 10 unit IM .ONCE PRN PRN Reason: Step one: If no IV access Stop: 06/30/21 17:02 Sodium Chloride (Sodium Chloride Flush 0.9% 10 Ml Syringe) 10 ml IVP PRN PRN PRN Reason: NEEDED PER PROVIDER ORDERS Sodium Chloride (Sodium Chloride Flush 0.9% 10 Ml Syringe) 10 ml IVP 0100,09 00,1700 CASTRO No122/Iron/Folic Acid [ Multi Tablet] 1 tab PO DAILY 10/29/20 Allergies/Adverse Reactions: Allergies Allergy/AdvReac Type Severity Reaction Status Date / Time No Known Drug Allergies Allergy Verified 06/14/21 19:58 Anes History & Medical History - Anesthetic History Family history of Anesthesia Complications: Denies Family history of Malignant Hyperthermia: Denies - Medical History Cardiovascular: reports: None Pulmonary: reports: Asthma (last used inhaler 2 weeks ago) Gastrointestinal: reports: GERD Urinary: reports: None Neuro: reports: None Musculoskeletal: reports: None Endocrine/Autoimmune: reports: None Blood Disorders: reports: None Skin: reports: None Smoking Status: Never smoker Psychosocial: reports: No issues indicated History of Cancer?: No - Obstetrical History : 1 Parity: 0 Events: reports: None Complications: reports: None Exam General: Alert, Oriented x3, Cooperative, No acute distress Dental: WNL Mouth Openin Fingerbreadth Neck Mobility: Normal Mallampati classification: II Thyromental Distance: 4-6 cm Mental/Cognitive Status: Alert/Oriented X3, Normal for patient Plan Anesthesia Type: Epidural Consent for Procedure(s) Verified and Reviewed: Yes Code Status: Attempt Resuscitation ASA classification: 2-Mild systemic disease Is this case an emergency?: No
[2021-06-25] MEDS ORDERED: METHYLERGONOVINE 0.2 MG/ML VIAL ONE (21:39)
[2021-06-25] MEDS: OXYTOCIN/SODIUM CHLORIDE 500 ML IV PRN (21:45)
[2021-06-25] MEDS ORDERED: WITCH HAZEL/GLYCERIN 1 PAD TOP PRN (22:36)
[2021-06-25] MEDS ORDERED: HYDROCORTISONE 1% CREAM 28 GM TUBE PR PRN (22:36)
--- NOTE | 2021-06-25 23:18 | DELIVERY NOTE ---
Delivery Note - Labor Labor: positive: Augmented by ARM - Infant Delivery Method Delivery Method: positive: Spontaneous vaginal delivery - Presentation Presentation: positive: Vertex, NARAYAN - left occiput anterior - Nuchal Cord Nuchal Cord: positive: None - Amniotic Fluid Description Amniotic Fluid Description: positive: Clear - Episiotomy Type Episiotomy Type: positive: None - Laceration Laceration: positive: 2nd degree, Vaginal - Suture Suture Type: positive: Vicryl Suture Size: positive: 2-0 - Delivery Outcome Delivery Outcome: positive: Livebirth - : positive: Placed in direct skin contact with mother, Stimulated, Warmed, Caney used Vincent sex: positive: Male - Cord Cord: positive: 3 vessels - Placenta Placenta: positive: Intact, Spontaneous - Estimated Blood Loss Estimated Blood Loss (in cc): 200 - Post Delivery Events Post Delivery Events: positive: No post delivery events - Delivery Comments (Free Text/Narrative) Delivery Comments (Free Text/Narrative): Labor: This 25yo @ 39.6wks gestation by 8.3wk U/S presented on 06/25/2021 with c/o contractions. SVE 5/80/-3 and vertex. FHR pattern demonstrated Category I pattern. Normal labor course. Epidural placed per maternal request. AROM occurred at 174 and was noted to be a moderate amount of clear fluid. Pt prog ressed to c/c/+1 @ 2114 with onset of pushing at 2131. : Normal of viable male on 06/25/2021 @ 2143. No nuchal cord. The was placed on maternal abdomen, stimulated, dried, and placed skin to skin. 's were 8/9 at 1 and 5 minutes respectively. Pitocin administered via IV for hemostasis. The umbilical cord was allowed to stop pulsating at which time it was doubly clamped by CNM and cut by FOB. Cord blood was obtained. 3VC. Fundal massage and gentle cord traction applied for active management of the third stage. Placenta delivered spontaneously and intact @ 2146. EBL 200mL. Fourth stage: Uterine fundus firm and there is no excessive bleeding. The perineum, vagina, and cervix were inspected and noted to have 2nd degree vaginal laceration which was repaired using a 2-[address]-1 needle in standard fashion and under sterile conditions. Vaginal and rectal examination following repair was done. Tissues well approximated. initiated. Family bonding well. Both mother and baby were left in stable condition.
[2021-06-26] MEDS ORDERED: SODIUM CHLORIDE FLUSH 0.9% 10 ML SYRINGE IVP SCH (01:00)
[2021-06-26] MEDS: OXYTOCIN/SODIUM CHLORIDE 500 ML IV PRN (01:23)
[2021-06-26] MEDS: ACETAMINOPHEN 500 MG TABLET PO SCH ×3 (05:08→21:24)
[2021-06-26] MEDS: DOCUSATE SODIUM 100 MG CAPSULE PO SCH ×2 (08:19→21:24)
[2021-06-26] MEDS: IBUPROFEN 800 MG TABLET PO SCH ×3 (08:20→20:28)
--- NOTE | 2021-06-26 11:51 | PROVIDER PROGRESS NOTE ---
Subjective - Subjective Subjective: S: Bonding well with baby. without difficulty. Bleeding decreased and is light. Pain well controlled with oral medications. is supportive at the bedside. O: BP 119/80/, T 36.5, RR 16, HR 82 Heart RRR w/o M/G/R, lungs CTAB, abdomen soft and nontender with fundus firm at U, perineum intact, repair with mild edema, light lochia rubra, bilateral LE's trace edema A: 25yo -->P1 PPD#1 s/p TSVD viable male 2nd degree perineal laceration -intact P: Continue routine care and medications. Evaluate for discharge home tomorrow. Pt verbalized understanding and agrees to above plan. She denies further questions or concerns at this time. Objective - Vital Signs/Intake & Output Vital Signs: Vital Signs x48h Temp Pulse Resp BP Pulse Ox 06/26/21 08:00 36.5 C 82 16 119/80 98 Intake & Output: Intake & Output 06/23/21 06/24/21 06/25/21 06/26/21 23:59 23:59 23:59 23:59 Intake Total 1759.75 250.25 Output Total 460 400 Balance 1299.75 -149.75 - Lab Results Fish Bones: 06/25/21 17:15 Other Labs: Lab Results x24hrs 06/25/21 06/25/21 06/25/21 Range/Units 17:15 17:15 16:35 WBC 9.5 (4.8-10.8) x10^3/uL RBC 3.96 L (4.20-5.40) 10^6/uL Hgb 12.1 (12.0-16.0) g/dL Hct 33.7 L (37.0-47.0) % MCV 85.1 (81.0-99.0) fL MCH 30.6 (27.0-31.0) pg MCHC 35.9 (32.0-36.0) g/dL RDW 14.0 (12.0-15.0) % Plt Count 257 (130-450) 10^3/uL MPV 12.0 H (7.9-10.8) fL Neut # (Auto) 7.6 H (1.5-6.6) 10^3/uL Lymph # (Auto) 1.1 L (1.5-3.5) 10^3/uL [place] # (Auto) 0.6 (0.0-1.0) 10^3/uL Eos # (Auto) 0.2 (0.0-0.7) 10^3/uL Baso # (Auto) 0.0 (0.0-0.1) 10^3/uL Absolute Nucleated RBC 0.00 x10^3/uL Nucleated RBC % 0.0 /100WBC Membranes Rupture NEGATIVE (NEGATIVE) Blood Type AB POSITIVE Antibody Screen NEGATIVE
[2021-06-27] MEDS: IBUPROFEN 800 MG TABLET PO SCH (02:31)
--- NOTE | 2021-06-27 09:41 | Discharge Plan ---
Discharge Plan Problem Reviewed?: Yes Disposition: Home, Self Care Condition: Good Diet: Regular Activity Restrictions: No Restrictions Shower Restrictions: No Driving Restrictions: No Weight Bearing: Full Weight No Smoking: If you smoke, Please STOP! Call for help. Follow-up with: Lucy Osuna CNM, ARNP [Provider Admit Priv/Credential] -
--- NOTE | 2021-06-27 09:48 | DISCHARGE SUMMARY ---
Discharge Summary Condition at Discharge: Good Discharge Disposition: 01 Home, Self Care - HOSPITAL COURSE Hospital Course: Date of admission: 06/25/2021 Date of discharge: 06/27/2021 Diagnosis on admission: 1. 25yo @ 39.6wks gestation by 8.3wk U/S 2. Active labor 3. GBS neg 4. FHR Category I Diagnosis on discharge: 1. 25yo PPD#2 s/p TSVD viable male 2. 2nd degree perineal laceration - intact 3. 4. normal recovery Brief history: She is a patient of [facility] who presented on 06/25/2021 in active labor. SVE was 5/80/-3 and vertex. She was augmented with AROM and progressed spontaneously to deliver a viable male infant on 06/25/2021 @ 2143. Apgars were 8/9 at 1 and 5 minutes respectively. EBL 200mL. 2nd degree perineal laceration was repaired in standard fashion and under sterile conditions. She has been doing well in her course. She is ambulating and tolerating a regular diet. She is urinating without difficulty and her lochia is normal. Her pain is well controlled with oral medications. She is bonding well with her baby and without difficulty. She will be discharged home today on day #2 with instructions to continue taking her vitamin while and to continue taking ibuprofen and Tylenol OTC as needed for pain management. She intends to follow up with myself and [facility] in 1 week or sooner if needed. She has been given precautions to call if she has any worsening fevers, chills, abdominal pain, increased vaginal bleeding or foul smelling vaginal lochia. She verbalized understanding and agrees to above plan. She denies further questions or concerns at this time. Physical Exam: Normocephalic, atraumatic, heart RRR w/o M/G/R, lungs CTAB, abdomen soft and nontener with fundus firm at U-1, perineum intact, light lochia rubra, bilateral LE's trace edema. - ALLERGIES Allergies/Adverse Reactions: Allergies Allergy/AdvReac Type Severity Reaction Status Date / Time No Known Drug Allergies Allergy Verified 06/14/21 19:58 - MEDICATIONS Home Medications: Ambulatory Orders Medication Instructions Recorded Confirmed Ondansetron Odt [Zofran] 4 mg TL Q6H PRN #10 tablet 10/29/20 No122/Iron/Folic Acid 1 tab PO DAILY 10/29/20 10/29/20 [ Multi Tablet] Albuterol Sulf [Ventolin Hfa 1 - 2 puffs INH Q4HR PRN #1 inhaler 06/14/21 Inhaler] - LABS Result Diagrams: 06/25/21 17:15
[2021-06-27 10:13] VITALS: BP 126/80
== END 2021-06-27 11:30 | disposition home or self-care (01) | DRG 807 ==
LOC: WFO 16:01 → FBP 16:02 → WFO 17:01 → FBP 17:08
PROVIDERS: ADMIT Nurse Practitioner Obstetrics & Gynecology; ATTEND Nurse Practitioner Obstetrics & Gynecology
PROC: 10E0XZZ Delivery of Products of Conception, External Approach (ICD-10-PCS; principal; 2021-06-25)
PROC: 0KQM0ZZ Repair Perineum Muscle, Open Approach (ICD-10-PCS; 2021-06-25)
PROC: 10907ZC Drainage of Amniotic Fluid, Therapeutic from Products of Conception, Via Natural or Artificial Opening (ICD-10-PCS; 2021-06-25)
DX: O99.52 Diseases of the respiratory system complicating childbirth (principal); Z37.0 Single live birth; J45.909 Unspecified asthma, uncomplicated; O70.1 Second degree perineal laceration during delivery; Z3A.39 39 weeks gestation of pregnancy; Z86.16 Personal history of COVID-19
CPT/HCPCS: 36415; 59025; 84112; 85025; 86850; 86900; 86901; 99215; A9270; J7120

== ENCOUNTER 2023-04-07 08:00 | Outpatient (CLI) | payer OTHER ==
[2023-04-07 17:02] LABS: BILIRUBIN,URINE NEGATIVE (NEGATIVE); GLUCOSE, URINE (UA) NEGATIVE (NEGATIVE); KETONES,URINE (UA) NEGATIVE (NEGATIVE); LEUKOCYTE ESTERASE, URINE NEGATIVE (NEGATIVE); NITRITE,URINE NEGATIVE (NEGATIVE); OCCULT BLOOD,URINE NEGATIVE (NEGATIVE); PH,URINE 7.5 PH (5.0-7.5); PROTEIN,URINE NEGATIVE (NEGATIVE); UROBILINOGEN,URINE 0.2 (NORMAL) E.U./dL (NORMAL)
[2023-04-07 17:05] LABS: CLARITY,URINE CLEAR (CLEAR)
[2023-04-07 17:44] LABS: BACTERIA,URINE Moderate /HPF (None Seen); RBC,URINE 0-5 /HPF (0-5); SQUAMOUS EPITHELIAL CELL,UR MOD Squamous (<= Few); WBC,URINE 0-3 /HPF (0-5)
== END 2023-04-07 23:59 | disposition home or self-care (01) ==
LOC: LAB.WC 08:00
PROVIDERS: ATTEND Obstetrics & Gynecology
DX: Z34.90 Encounter for supervision of normal pregnancy, unspecified, unspecified trimester (principal)
CPT/HCPCS: 81001; 87086

== ENCOUNTER 2023-04-12 10:18 | Outpatient (CLI) | payer OTHER ==
[2023-04-12 11:44] LABS: BASOPHILS % (AUTO) 0.8 %; EOSINOPHILS # (AUTO) 0.1 10^3/uL (0.0-0.7); HCT - HEMATOCRIT 37.4 % (37.0-47.0); HGB - HEMOGLOBIN 12.7 g/dL (12.0-16.0); LYMPHOCYTES # (AUTO) 1.7 10^3/uL (1.5-3.5); LYMPHOCYTES % (AUTO) 33.5 %; MEAN CORPUSCULAR VOLUME 85.4 fL (81.0-99.0); MEAN PLATELET VOLUME 11.6 fL (7.9-10.8); MONOCYTES # (AUTO) 0.6 10^3/uL (0.0-1.0); MONOCYTES % (AUTO) 11.7 %; NEUTROPHILS # (AUTO) 2.6 10^3/uL (1.5-6.6); NEUTROPHILS % (AUTO) 51.8 %; PLT - PLATELET COUNT 275 10^3/uL (130-450); RED BLOOD COUNT 4.38 10^6/uL (4.20-5.40)
[2023-04-13 03:12] LABS: HIV SCREEN 4TH GENERATION Non Reactive (Non Reactive)
[2023-04-13 04:09] LABS: HBsAG SCREEN Negative (Negative); HCV AB Non Reactive (Non Reactive)
[2023-04-13 08:10] LABS: RPR Non Reactive (Non Reactive)
[2023-04-13 09:10] LABS: VARICELLA-ZOSTER AB IGG 348 index (Immune >165)
== END 2023-04-12 10:19 | disposition home or self-care (01) ==
LOC: LAB.N 10:18
PROVIDERS: ATTEND Nurse Practitioner
DX: Z34.90 Encounter for supervision of normal pregnancy, unspecified, unspecified trimester (principal)
CPT/HCPCS: 36415; 85025; 86592; 86762; 86787; 86803; 86850; 86900; 86901; 87340; 87389

== ENCOUNTER 2023-05-25 08:00 | Outpatient (CLI) | payer OTHER ==
[2023-05-25 12:28] LABS: CHLAMYDIA TRACHOMATIS DNA NEGATIVE (NEGATIVE); NEISSERIA GONORRHOEAE DNA NEGATIVE (NEGATIVE); TRICHOMONAS VAGINALIS DNA NEGATIVE (NEGATIVE)
== END 2023-05-25 23:59 | disposition home or self-care (01) ==
LOC: LAB.WC 08:00
PROVIDERS: ATTEND Obstetrics & Gynecology
DX: Z11.3 Encounter for screening for infections with a predominantly sexual mode of transmission (principal)
CPT/HCPCS: 87491; 87591; 87661

== ENCOUNTER 2023-06-20 10:15 | Outpatient (CLI) | payer OTHER ==
[2023-06-22 21:07] LABS: AFP MOM 1.01 (.); AFP VALUE 46.2 ng/mL (.); DIA MOM 1.19 (.); DIA VALUE 197.35 pg/mL (.); DSR (BY AGE) 1 IN 707 (.); DSR (SECOND TRIMESTER) 1 IN 4136 (.); GEST. AGE ON COLLECTION DATE 17.6 WEEKS (.); HCG MOM 1.54 (.); HCG VALUE 61002 mIU/mL (.); INSULIN DEP DIABETES No (.); MATERNAL AGE AT EDD 29.9 yr (.); MULTIPLE GESTATION No (.); OPEN SPINA BIFIDA RISK 1 IN 10000 (.); RACE Caucasian (.); RESULTS Report (.); TEST RESULTS *Screen Negative* (.); TRISOMY 18 RISK Not increased (.); UE3 MOM 1.36 (.); UE3 VALUE 1.83 ng/mL (.); WEIGHT 130 lbs (.)
== END 2023-06-20 10:16 | disposition home or self-care (01) ==
LOC: LAB 10:15
PROVIDERS: ATTEND Obstetrics & Gynecology
DX: Z34.90 Encounter for supervision of normal pregnancy, unspecified, unspecified trimester (principal); Z84.81 Family history of carrier of genetic disease
CPT/HCPCS: 36415; 81511

== ENCOUNTER 2023-07-10 15:38 | Outpatient (CLI) | payer OTHER ==
--- NOTE | 2023-07-11 10:32 | Ultrasound Report ---
PROCEDURE: OB Detailed Eval INDICATIONS: SUPERVISION OF OUTSIDE/PRIOR DATING DATA: Last menstrual period (LMP): 02/17/2023. LMP-based estimated date of delivery (MASHA): 11/24/2023. First dating scan (date and location): 04/12/2023. Estimated date of delivery (MASHA) from first dating scan: 12/01/2023. TECHNIQUE: Real-time scanning was performed of the fetus, with image documentation and biometric measurements. Endovaginal scanning: Not performed COMPARISON: 04/12/2023 FINDINGS: General: A single living intrauterine gestation is present. Presentation: Vertex Placenta: Placental position is posterior, without previa. Amniotic fluid index: 14.1 cm, within normal limits for gestational age. heart rate: 152 beats per minute. Maternal cervical canal: 6.6 cm long; normal length is 2.5 cm or more. biometrics: Biparietal diameter: 4.8 cm 20 weeks 4 days Head circumference: 18.1 cm 20 weeks 4 days Abdominal circumference: 15.5 cm 20 weeks 5 days Femur length: 3.1 cm 19 weeks 4 days Estimated gestational age from initial scan: 19 weeks 3 days Composite gestational age from present scan: 20 weeks 1 day Estimated weight and percentile: 339 g, 87th percentile Measurement variability in biometric dating: +/- 10 days from 12-20 weeks gestation, +/- 2 weeks from 20-30 weeks gestation, +/- 3 weeks at 30 weeks gestation or later. Anatomic survey: Neuro: Ventricles are normal at less than 10 mm. Cisterna magna is normal at 3-11 mm. Cerebellum i s normal in size and morphology. Nuchal skin fold: Normal at less than 6 mm between 14 and 20 weeks gestational age. Face: Nose and lips, facial profile are normal. Spine: No evidence for spina bifida. Heart: 4-chambered heart is present, with normal ventricular outflow tracts. Diaphragm: Diaphragm is intact. Stomach: Left-sided stomach is present. Kidneys: No hydronephrosis. Normal is less than 5 mm in 2nd trimester, less than 7 mm in 3rd trimester. Cord: 3 vessel cord has orthotopic insertion. Bladder: Normal in size. Extremities: All 4 extremities are visualized. IMPRESSION: 1. Single living intrauterine . 2. Normal second trimester anatomy survey. No anatomic anomalies detected at this time. Reviewed by: Sander Moss MD on 07/11/2023 10:31 AM PDT Approved by: Sander Moss MD on 07/11/2023 10:31 AM PDT Station ID: [id number]
== END 2023-07-10 15:39 | disposition home or self-care (01) ==
LOC: DI 15:38
PROVIDERS: ATTEND Nurse Practitioner
DX: Z34.92 Encounter for supervision of normal pregnancy, unspecified, second trimester (principal); Z36.89 Encounter for other specified antenatal screening

== ENCOUNTER 2023-09-09 09:37 | Outpatient (CLI) | payer OTHER ==
[2023-09-09 18:40] LABS: HCT - HEMATOCRIT 33.2 % (37.0-47.0); HGB - HEMOGLOBIN 10.4 g/dL (12.0-16.0); MEAN CORPUSCULAR HEMOGLOBIN 27.8 pg (27.0-31.0); MEAN CORPUSCULAR HGB CONC 31.3 g/dL (32.0-36.0); MEAN CORPUSCULAR VOLUME 88.8 fL (81.0-99.0); MEAN PLATELET VOLUME 11.8 fL (7.9-10.8); RED BLOOD COUNT 3.74 10^6/uL (4.20-5.40); RED CELL DISTRIBUTION WIDTH 12.9 % (12.0-15.0); WHITE BLOOD COUNT 7.7 x10^3/uL (4.8-10.8)
== END 2023-09-09 09:38 | disposition home or self-care (01) ==
LOC: LAB.N 09:37
PROVIDERS: ATTEND Nurse Practitioner
DX: Z34.90 Encounter for supervision of normal pregnancy, unspecified, unspecified trimester (principal); Z36.89 Encounter for other specified antenatal screening
CPT/HCPCS: 36415; 82950; 85027